=== PATIENT | female | born 1965 | race Hispanic/Latino ===

== ENCOUNTER 2020-02-25 14:13 | Emergency (ER) | payer BC, OTHER ==
[~2020-02-25 14:13] MED LIST: CITA20TA17 PO; IBUP-2077 PO
[2020-02-25] MEDS ORDERED: LIDOCAINE 5% TOPICAL PATCH TP ONE (14:32)
[2020-02-25] MEDS ORDERED: KETOROLAC TROMETHAMINE 60 MG/2 ML VIAL ONE (14:32)
[2020-02-25] MEDS ORDERED: CYCLOBENZAPRINE HCL 10 MG TABLET ONE (14:32)
== END 2020-02-25 15:50 | disposition home or self-care (01) ==
LOC: EDH 14:13
DX: S29.012A Strain of muscle and tendon of back wall of thorax, initial encounter (principal); M79.602 Pain in left arm; M79.601 Pain in right arm; M54.2 Cervicalgia; Z98.51 Tubal ligation status; Z98.890 Other specified postprocedural states; Z88.1 Allergy status to other antibiotic agents; V49.49XA Driver injured in collision with other motor vehicles in traffic accident, initial encounter; Y93.89 Activity, other specified; Y92.89 Other specified places as the place of occurrence of the external cause; Y99.8 Other external cause status
CPT/HCPCS: 96372; 99283; J1885